=== PATIENT | male | born 1975 | race Native Hawaiian/Other Pacific Islander ===

== ENCOUNTER 2018-10-05 14:40 | Emergency (ER) | payer BC, OTHER ==
--- NOTE | 2018-10-05 14:47 | Event Note ---
ED Screening Note Date of service: 10/05/18 Time: 14:44 ED Screening Note: 43 y/o male comes in for nasal bump, fever nose swelling. Was seen yesterday by a doctor and placed on amox. Took adavil prior to his visit. This initial assessment/diagnostic orders/clinical plan/treatment(s) is/are dwyer bject to change based on patients health status, clinical progression and re- assessment by fellow clinical providers in the ED. Further treatment and workup at subsequent clinical providers discretion. Patient/guardian urged not to elope from the ED as their condition may be serious if not clinically assessed and managed. Initial orders include:
[2018-10-05 14:48] VITALS: BP 120/77
[2018-10-05] MEDS ORDERED: NACL 0.9% 1000 ML 1,000 ML IV ONE (16:51)
[2018-10-05] MEDS ORDERED: ZOFRAN IV ONE (16:51)
[2018-10-05] MEDS ORDERED: CLEOCIN 900 MG/50 mL 900 MG/50 ML BAG IV ONE (16:51)
[2018-10-05] MEDS ORDERED: MORPHINE IV ONE (16:51)
[2018-10-05 18:00] LABS: Basophils % (Auto) 0.2 % (0.0-1.8); Eosinophils % (Auto) 0.3 % (0.0-4.3); Hematocrit 41.5 % (35.5-45.6); Hemoglobin 13.7 gm/dl (11.8-15.2); Lymphocytes # (Auto) 2.2 K/mm3 (1.2-5.4); Lymphocytes % (Auto) 16.1 % (13.4-35.0); Mean Corpuscular HGB Conc 33 % (32-34); Mean Corpuscular Volume 93 fl (84-94); Monocytes # (Auto) 1.5 K/mm3 (0.0-0.8); Monocytes % (Auto) 10.6 % (0.0-7.3); Platelet Count 233 K/mm3 (140-440); Red Blood Count 4.49 M/mm3 (3.65-5.03); Red Cell Distribution Width 12.6 % (13.2-15.2)
[2018-10-05 18:14] LABS: BUN/Creatinine Ratio 17; Blood Urea Nitrogen 12 mg/dL (9-20); Calcium 8.9 mg/dL (8.4-10.2); Hemolysis Index 26
--- NOTE | 2018-10-05 18:50 | Emergency Department Report ---
ED General Adult HPI - General Chief complaint: Allergic Reaction Stated complaint: NOSE SWELLING/BODY PAIN/FEVER Time Seen by Provider: 10/05/18 16:23 Source: patient Mode of arrival: Ambulatory Limitations: No Limitations - History of Present Illness Initial comments: This is a 43-year-old male nontoxic, well nourished in appearance, no acute signs of distress presents to the ED with c/o of bilateral nasal swelling, redness and pain 1 week. Patient stated he saw his primary care doctor which was put on amoxicillin the symptoms are getting worse. Patient also stated has subjective fever. Denies any trauma. Denies any difficulty breathing. Denies any other symptoms or complaints. Denies any nausea, vomiting, chest pain, shortness of breath, headache, stiff neck, numbness or tingling. Patient denies any allergies significant past medical history. -: week(s) (1) Severity scale (0 -10): 8 Quality: aching Consistency: constant Improves with: none Worsens with: none Associated Symptoms: denies other symptoms. denies: confusion, chest pain, cough, diaphoresis, fever/chills, headaches, loss of appetite, malaise, nausea/vomiting, rash, seizure, shortness of breath, syncope, weakness Treatments Prior to Arrival: none - Related Data Allergies Allergy/AdvReac Type Severity Reaction Status Date / Time No Known Allergies Allergy Unverified 10/05/18 14:42 ED Review of Systems ROS: Stated complaint: NOSE SWELLING/BODY PAIN/FEVER Other details as noted in HPI Constitutional: denies: chills, fever Eyes: denies: eye pain, eye discharge, vision change ENT: denies: ear pain, throat pain Respiratory: denies: cough, shortness of breath, wheezing Cardiovascular: denies: chest pain, palpitations Endocrine: no symptoms reported Gastrointestinal: denies: abdominal pain, nausea, diarrhea Genitourinary: denies: urgency, dysuria Musculoskeletal: denies: back pain, joint swelling, arthralgia Skin: denies: rash, lesions Neurological: denies: headache, weakness, paresthesias Psychiatric: denies: anxiety, depression Hematological/Lymphatic: denies: easy bleeding, easy bruising ED Past Medical Hx - Past Medical History Previous Medical History?: No Hx Asthma: No - Surgical History Past Surgical History?: No Hx Appendectomy: No Hx Breast Surgery: No - Social History Smoking Status: Never Smoker Substance Use Type: None ED Physical Exam - General Limitations: No Limitations General appearance: alert, in no apparent distress - Head Head exam: Present: atraumatic, normocephalic - Expanded Head Exam Expanded 1 - redness and swelling with no palpable induration or fluctuance. - Eye Eye exam: Present: normal appearance - ENT ENT exam: Present: other (bilateral nasal swelling with no hematoma or nasal obstruction present) - Expanded ENT Exam Expanded Mouth exam: Present: normal external inspection Teeth exam: Present: normal inspection Throat exam: Positive: normal inspection - Neck Neck exam: Present: normal inspection, full ROM. Absent: tenderness, meningismus, lymphadenopathy - Extremities Exam Extremities exam: Present: normal inspection, full ROM - Back Exam Back exam: Present: normal inspection, full ROM - Neurological Exam Neurological exam: Present: alert, oriented X3, normal gait - Psychiatric Psychiatric exam: Present: normal affect, normal mood - Skin Skin exam: Present: warm, dry, intact, normal color. Absent: rash ED Course Vital Signs 10/05/18 14:44 Temperature 98.5 F Pulse Rate 95 H Respiratory 18 Rate Blood Pressure 120/77 O2 Sat by Pulse 97 Oximetry - Reevaluation(s) Reevaluation #1: 10/05/18 18:51 Patient is speaking in full sentences with no signs of distress noted. - Consultations Consultation #1: 10/05/18 21:34 Patient has been consulted with Dr. Ruiz about patient history, physical exam, and labs/CT results and examined and screened patient and agrees to ED plan of care with transfer to with ENT. ED Medical Decision Making - Lab Data Result diagrams: 10/05/18 17:32 10/05/18 17:32 - Medical Decision Making This is a 43-year-old male that presents with nasal abscess. Patient is febrile and was examined me. Patient was consulted with Dr. Ruiz and agrees to the plan of care with transport. Patient did receive 1 L normal saline and clindamycin IV. Patient was notified of the CT results and how critical this can be the patient that he would rather drive himself. Patient was educated about my concerns and to have transported from the ER to ER the patient refused. Patient signed AGAINST MEDICAL ADVICE. Patient was notified that his condition is very serious and that he has to get proper treatment. At time of signing AMA, the patient does not seem toxic or ill in appearance. No acute signs of distress noted. Patient agrees to treatment plan of care. No further questions noted by the patient. Critical care attestation.: If time is entered above; I have spent that time in minutes in the direct care of this critically ill patient, excluding procedure time. ED Disposition Clinical Impression: Nasal abscess Disposition: DC-07 LEFT AGAINST MED ADVICE Is pt being admited?: No Does the pt Need Aspirin: No Condition: Undetermined Instructions: Abscess (ED) Additional Instructions: You are signing against medical advice. Your symptoms and signs can be very critical and crucial if not full assessed and treated. This could cause to ser ious conditions, complications, and/or . Referrals: RIDGE MARTINES MD [Staff Physician] - [facility], [Referring] - [facility] Forms: AMA Form
--- NOTE | 2018-10-05 20:42 | Cat Scan Report ---
CT FACE HISTORY: Right-sided facial pain and swelling in the last 6 days COMPARISON: Images are obtained before and after intravenous administration of contrast. TECHNIQUE: Axial images of the face were obtained. Coronal and sagittal reformats were obtained. CONTRAST: 100 mL iodinated contrast FINDINGS: This is an abnormal CT scan. In the right ala of side wall of the nose, 11 mm (sagittal) x 6 mm (transverse) x 2 cm ( height) none nhancing lesions surrounded by enhancing soft tissue. This appears to be abscess. Edematous changes a re seen in the median nasal septum. Edema is not extending into the aponeurosis of the face. Facial bones: No fracture or other significant abnormality. Paranasal sinuses: Mucosal thickening is seen in the right anterior ethmoid air cell. Orbits: No significant abnormality. Visualized images of the intracranial space: No significant abnormality. Cavernous sinuses are normal . Additional findings: None. IMPRESSION: Abscess in the right ala of the sidewall of the nose have discussed findings with the R physician at 7:35 PM Central daylight saving time Signer Name: Tran Gross MD Signed: 10/05/2018 8:38 PM Workstation Name: [id number]
== END 2018-10-05 22:58 | disposition left against medical advice (07) ==
LOC: ED 14:40
DX: J34.0 Abscess, furuncle and carbuncle of nose (principal)
CPT/HCPCS: 36415; 70487; 80048; 85025; 96365; 96375; 99284; J2270; J2405; J7030; Q9967